=== PATIENT | male | born 1935 | race Caucasian/White ===

== ENCOUNTER 2019-06-22 13:34 | Emergency (ER) | payer MEDICARE ==
--- NOTE | 2019-06-22 16:37 | RAD ---
Radiograph neck soft tissues 2 views: DATE: 06/22/2019 HISTORY: 83-year-old male with foreign body FINDINGS: No radiopaque foreign body is visualized. Supraglottic airways are unremarkable. Bulky marginal osteo phytes protruding into the prevertebral space from see 4 through C7. High-grade bilateral facet DJD bilaterally, left worse than right. This is associated with grade 1 anterolisthesis of C3 on C4, and C4 on C5. No prevertebral soft tissue thickening. Edentulous jaws. IMPRESSION: 1. No radiopaque foreign body visualized. 2. High-grade cervical spondylosis 3. DISH (diffuse idiopathic skeletal hyperostosis), which could potentially cause chronic dysphagia.
== END 2019-06-22 14:43 | disposition short-term general hospital (02) ==
LOC: NAV ERS 13:34
DX: K22.2 Esophageal obstruction (principal); I10 Essential (primary) hypertension; E78.5 Hyperlipidemia, unspecified; Z87.891 Personal history of nicotine dependence; Z79.899 Other long term (current) drug therapy
CPT/HCPCS: 70360